=== PATIENT | female | born 1990 | race African-American/Black ===

== ENCOUNTER 2017-02-08 17:14 | Emergency (ER) | payer MEDICAID ==
[~2017-02-08] VITALS: Ht 165.1 cm; Wt 75.0 kg
[~2017-02-08 17:14] MED LIST: Z.0.NO CURRENT MEDS
[2017-02-08 17:15] VITALS: BP 127/70; PULSE 87; RESP 16; TEMP 98.2; O2SAT 99
[2017-02-08] MEDS ORDERED: ACET-703 PO (17:49)
--- NOTE | 2017-02-08 17:50 | PD ---
HPI Chief Complaint: Headache Time Seen by Provider: 17:34 Travel History International Travel<30 days: No Contact w/Intl Traveler<30days: No Traveled to known affect area: No History of Present Illness HPI This is a 27-year-old female who arrives complaining of headaches every night around 7:30 for a couple weeks. Initially they lasted just a few minutes however they've been lasting longer. Typically resting alone in leads to pain resolution. The pain is getting worse as well. Location is frontal head. Nausea without vomiting reported. Photophobia reported. No neck stiffness or fever reported. The patient states she is about 13 weeks and just wants to be certain everything is fine. She was advised by her dynamic balancer set up worker Arabella Randall to increase her water intake and states right now she is taking six 16 ounce bottles of water everyday. She has not taken an [id number] medication for the pain. She notes her sister has a history of migraines however the patient herself does not. No drugs or alcohol. No vaginal bleeding or genitourinary complaint. PFSH Past Medical History Medical History: Denies Significant Hx Asthma: Yes Diminished Hearing: No ?: LMP: 11/05/16 Menopausal: No : 1 Para: 0 Miscarriage: 0 : 0 Past Surgical History Surgical History: No Previous Surgery Social History Alcohol Use: No Tobacco Use: No Substance Use: No Allergies-Medications (Allergen,Severity, Reaction): Coded Allergies: No Known Allergies (Verified , 02/27/12) Reported Meds & Prescriptions Reported Meds & Active Scripts Active Reported No Current Meds (Miscellaneous Medication) Misc Review of Systems Except as stated in HPI: all other systems reviewed are Neg General / Constitutional: No: Fever Gastrointestinal: Positive: Nausea, No: Vomiting Physical Exam Narrative GENERAL: 27-year-old female well-nourished well-developed no acute distress SKIN: Focused skin assessment warm/dry. HEAD: Atraumatic. Normocephalic. EYES: Pupils equal round and reactive to light. The gaze is conjugate. Extraocular muscles are normal with range of motion. ENT: No nasal bleeding or discharge. Mucous membranes pink and moist. NECK: Trachea midline. No JVD. Supple no focal Midline tenderness. CARDIOVASCULAR: Regular rate and rhythm. No murmur appreciated. RESPIRATORY: No accessory muscle use. Clear to auscultation. Breath sounds equal bilaterally. GASTROINTESTINAL: Abdomen soft, non-tender, nondistended. Hepatic and splenic margins not palpable. MUSCULOSKELETAL: No obvious deformities. No clubbing. No cyanosis. No edema. NEUROLOGICAL: Awake and alert. No obvious cranial nerve deficits. Motor grossly within normal limits. Normal speech. PSYCHIATRIC: Appropriate mood and affect; insight and judgment normal. Data Data Last Documented VS Vital Signs Date Time Temp Pulse Resp B/P Pulse Ox O2 Delivery O2 Flow Rate FiO2 02/08/17 17:31 Room Air 02/08/17 17:15 98.2 87 16 127/70 99 Vital signs reviewed MDM Medical Decision Making Medical Screen Exam Complete: Yes Emergency Medical Condition: Yes Medical Record Reviewed: Yes Differential Diagnosis Thrombotic intracranial disease causing headache, migraine, complex migraine, preeclampsia, tension headache, cluster headache, intra-cranial hemorrhage Narrative Course Fortunately the patient's presentation is quite benign and she actually has no headache time of reevaluation. Her neurologic exam is normal. Her vital signs are also normal. At this time thrombotic disease causing headache and is considered very unlikely. Patient educated regarding Tylenol and was receptive. She has follow up as noted with Arabella Randall. Diagnosis Primary Impression: Headache Qualified Code: R51 - Nonintractable episodic headache, unspecified headache type Additional Impression: Qualified Code: Z3A.13 - 13 weeks gestation of Referrals: [facility] 1 week Additional Instructions: You have a choice when it comes to health care, and we are glad that you chose [facility]. Hopefully, we have met your expectations on today's visit. You are welcome to return to [facility] at any time, as we are committed to meeting the health care needs of our community. Med/Other Pt SpecificInfo: Prescription(s) given Scripts Acetaminophen (Tylenol Extra Strength)500 Mg Tab1,000 Mg PO Q8HR PRN (HEADACHE) 10 Days Ref 0 Prov:Kishore Mccray MD 02/08/17 Disposition: 01 DISCHARGE HOME Condition: Stable Kishore Mccray MD February 08, 2017 17:50
== END 2017-02-08 17:53 | disposition home or self-care (01) ==
LOC: NEPD 17:14
DX: O26.91 Pregnancy related conditions, unspecified, first trimester (principal); R51 Headache; Z3A.13 13 weeks gestation of pregnancy
CPT/HCPCS: 99283

== ENCOUNTER 2017-07-22 15:01 | Emergency (ER) | payer MEDICAID ==
[~2017-07-22 15:01] MED LIST changes: +ACET-703 PO
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
== END 2017-07-22 16:46 | disposition home or self-care (01) ==
LOC: HOBED 15:01
DX: Z04.3 Encounter for examination and observation following other accident (principal); Z3A.37 37 weeks gestation of pregnancy
CPT/HCPCS: 59025

== ENCOUNTER 2017-08-09 02:20 | Inpatient (IN) | payer MEDICAID ==
[~2017-08-09] VITALS: Ht 165.1 cm; Wt 91.0 kg
[2017-08-09] VITALS (82 sets, daily range): BP systolic 90–140; BP diastolic 47–89; PULSE 77–115; RESP 16–20; TEMP 98.5–99
[2017-08-09] MEDS ORDERED: LACTATED RINGER'S 1000 ML INJ 1,000 ML IV SCH (02:56)
[2017-08-09] MEDS ORDERED: LACTATED RINGER'S 1000 ML INJ 1,000 ML IV PRN (02:56)
[2017-08-09] MEDS ORDERED: fentaNYL 2MCG-BUPIV 0.125% INJ 100 ML ONE (02:57)
[2017-08-09] MEDS ORDERED: ePHEDrine/NS 25 MG/5 ML SYR ONE (02:57)
[2017-08-09] MEDS ORDERED: LIDOCAINE HCL 1% 50 ML VIAL INFIL PRN (03:00)
[2017-08-09] MEDS ORDERED: LIDOCAINE HCL 1% 50 ML VIAL I-DERMAL PRN (03:00)
[2017-08-09] MEDS ORDERED: OXYTOCIN 30 UNITS-500ML PREMIX 500 ML IV ONE (03:00)
[2017-08-09] MEDS ORDERED: ONDANSETRON HCL 4 MG/2 ML VIAL IV PUSH PRN (03:00)
[2017-08-09] MEDS ORDERED: MINERAL OIL 10 ML VIAL TOPICAL PRN (03:00)
[2017-08-09] MEDS ORDERED: OXYTOCIN 30 UNITS-500ML PREMIX 500 ML IV SCH ×2 (03:00→12:30)
[2017-08-09] MEDS ORDERED: CITRIC ACID-SODIUM CITRATE LIQ 30 ML UDC PO SCH (03:00)
[2017-08-09] MEDS ORDERED: SODIUM CHLORID 0.9% 500 ML INJ 500 ML IV PRN (03:00)
--- NOTE | 2017-08-09 03:04 | PD ---
HPI Chief Complaint ctx Date Seen: Aug 09, 2017 Time Seen: 02:58 Travel History International Travel<30 Days: No Contact w/Intl Traveler<30Days: No Known Affected Area: No History of Present Illness HPI Pt is a 27y/o @ 39.4wks. She has PNC with [facility]. She presents with c/o ctx since 11pm "too close together". She denies LOF, VB. +FM. Weeks Gestation: 39 Para: 0 : 1 Last Menstrual Period: Aug 09, 2017 History Past Medical History Narrative Medical asthma Obstetric History Obstetric History 1. current Past Surgical History Surgical History: No Previous Surgery Family History Family History: Negative Social History Alcohol Use: No Tobacco Use: No Substance Abuse: No Allergies-Medications (Allergen,Severity, Reaction): Coded Allergies: No Known Allergies (Verified , 02/27/12) Home Meds Active Scripts Acetaminophen (Tylenol Extra Strength) 500 Mg Tab, 1000 MG PO Q8HR Y for HEADACHE for 10 Days, TAB 0 Refills Prov:Kishore Mccray MD 02/08/17 Reported Medications Miscellaneous (No Current Meds) [facility] [place] Review of Systems Except as stated in HPI: all other systems reviewed are Neg Physical Exam Narrative GENERAL: Well-nourished, well-developed patient, uncomfortable and breathing heavily with ctx SKIN: Warm and dry. HEAD: Normocephalic and atraumatic. EYES: No scleral icterus. No injection or drainage. ABDOMEN/GI: Abdomen soft, non-tender,gravid EXTREMITIES: No cyanosis NEUROLOGICAL: Awake and alert. Motor and sensory grossly within normal limits. FHTs: 130s, no accels seen, no decels, moderate variability, non-reactive (pt moving with each ctx and tracing maternal HR) TOCO: ctx q2-3m CVX: 3-/BBOW Data Data Vital Signs Reviewed: Yes Orders Orders Ob (2e) Additional Admit Info (08/09/17 02:55) Vital Signs (Adult) .ON ADMISSION (08/09/17 02:56) ^ Labor Status (08/09/17 02:56) ^ Non Stress Test (08/09/17 02:56) Admit To Inpatient (08/09/17 ) Vital Signs (Adult) .Per protocol (08/09/17 02:56) Heart (08/09/17 02:56) Amnioinfusion (08/09/17 02:56) Lactated Ringer's 1000 Ml Inj (Lr 1000 M (08/09/17 02:56) Sodium Chlorid 0.9% 500 Ml Inj (Ns 500 M (08/09/17 03:00) Sodium Chlor 0.9% 1000 Ml Inj (Ns 1000 M (08/09/17 03:16) Lidocaine 1% Inj (50 Ml) (Xylocaine 1% I (08/09/17 03:00) Citric Acid-Sodium Citrate Liq (Bicitra (08/09/17 03:00) Ondansetron Inj (Zofran Inj) (08/09/17 03:00) Fentanyl Inj (Fentanyl Inj) (08/09/17 03:00) Fentanyl Inj (Fentanyl Inj) (08/09/17 03:00) Complete Blood Count With Diff (08/09/17 02:56) Abo/Rh Blood Type (08/09/17 02:56) Urinalysis - C+S If Indicated (08/09/17 02:56) Drug Screen, Random Urine (08/09/17 02:56) Resp Oxygen Non Rebreathe Mask (08/09/17 ) ^ Epidural / Intrathecal Infus (08/09/17 02:56) Oxytocin 30 Units-500ml Premix (Pitocin (08/09/17 03:00) Lidocaine 1% Inj (50 Ml) (Xylocaine 1% I (08/09/17 03:00) Light Mineral Oil (Muri-Lube Oil) (08/09/17 03:00) Inpatient Certification (08/09/17 ) Urinary Catheter Management .ONCE (08/09/17 02:56) Diet Liquid (08/09/17 Breakfast) Lactated Ringer's 1000 Ml Inj (Lr 1000 M (08/09/17 02:56) Response To Medication .Post New Med Administration, Reaction (08/09/17 02:57) ^ Discontinue Medication (08/09/17 02:57) Oxytocin Drip (2-2-30) (08/09/17 03:00) Fentanyl 2mcg-Bupiv 0.125% Inj (Fentanyl (08/09/17 02:57) Ephedrine/Ns 25 Mg/5 Ml Syr (Ephedrine/N (08/09/17 02:57) MDM Plan 27y/o @ 39.4wks in labor. -- admit to L&D -- CLD, carson, epidural PRN -- pitocin augmentation PRN -- cat 1 tracing -- GBS neg Dr. Concepcion (research and evaluation manager) notified of pt status and agrees with plan of care. Courtesy orders placed. She will assume care of the pt. Diagnosis Diagnosis: Primary Impression: 39 weeks gestation of Additional Impressions: Uterine contractions during Asthma Condition: Critical Keesha Crooks MD Aug 09, 2017 03:04
[2017-08-09 03:14] LABS: AUTOMATED NEUTROPHIL # 9.3 TH/MM3 (1.8-7.7); BASOPHIL % 0.1 % (0.0-2.0); EOSINOPHIL # 0.1 TH/MM3 (0-0.4); EOSINOPHIL % 0.6 % (0.0-4.0); HEMATOCRIT 35.9 % (35.0-46.0); LYMPH % 16.4 % (9.0-44.0); LYMPHOCYTE # 2.1 TH/MM3 (1.0-4.8); MEAN CORPUSCULAR HEMOGLOBIN 27.5 PG (27.0-34.0); MEAN CORPUSCULAR HGB CONC 33.6 % (32.0-36.0); MEAN PLATELET VOLUME 7.9 FL (7.0-11.0); MONO % 11.2 % (0.0-8.0); MONOCYTE # 1.5 TH/MM3 (0-0.9); NEUT % 71.7 % (16.0-70.0); PLATELET COUNT 171 TH/MM3 (150-450); RED BLOOD COUNT 4.37 MIL/MM3 (4.00-5.30); RED CELL DISTRIBUTION WIDTH 15.1 % (11.6-17.2)
[2017-08-09 03:15] LABS: AMORPHOUS SEDIMENT, URINE RARE; BACTERIA, URINE RARE /hpf; BILIRUBIN, URINE NEG (NEG); BLOOD, URINE NEG (NEG); GLUCOSE,URINE TRACE mg/dL (NEG); HYALINE CAST, URINE 1 /lpf (RARE); KETONE, URINE TRACE mg/dL (NEG); MUCUS URINE FEW /lpf (OCC); NITRITE,URINE NEG (NEG); PH, URINE 6.5 (5.0-8.5); SQUAMOUS EPITHELIAL CELL URINE 4 /hpf (0-5); URINE COLOR YELLOW (YELLW/STRAW); URINE LEUKOCYTE ESTERASE LARGE (NEG)
[2017-08-09] MEDS ORDERED: SODIUM CHLOR 0.9% 1000 ML INJ 1,000 ML IV PRN (03:16)
[2017-08-09] MEDS ORDERED: PREN29TA PO (03:31)
[2017-08-09] MEDS ORDERED: ePHEDrine/NS 25 MG/5 ML SYR IV PUSH PRN (04:15)
[2017-08-09] MEDS ORDERED: NO SYSTEM NARCOTICS PRN (04:15)
[2017-08-09] MEDS ORDERED: DO NOT ADMINISTER ANTICOAGULANTS PRN (04:15)
[2017-08-09] MEDS ORDERED: fentaNYL 2MCG-BUPIV 0.125% 100 ML EPIDURAL SCH (04:15)
--- NOTE | 2017-08-09 09:56 | PD.LABORPN ---
Subjective Subjective comfortable w epidural Objective Vital Signs Vital Signs Date Time Temp Pulse Resp B/P (MAP) Pulse Ox O2 Delivery O2 Flow Rate FiO2 08/09/17 08:30 17 08/09/17 08:25 110 08/09/17 08:25 107 08/09/17 08:20 94 08/09/17 08:20 93 08/09/17 08:15 95 08/09/17 08:15 100 08/09/17 08:15 94 101/63 (76) 08/09/17 08:10 95 08/09/17 08:10 97 08/09/17 08:05 100 08/09/17 08:05 101 08/09/17 08:00 92 08/09/17 08:00 92 08/09/17 07:45 18 08/09/17 07:40 81 08/09/17 07:40 82 08/09/17 07:35 79 08/09/17 07:35 79 08/09/17 07:30 81 08/09/17 07:30 85 08/09/17 07:30 79 97/61 (73) 08/09/17 07:05 79 08/09/17 07:05 79 08/09/17 07:00 84 08/09/17 07:00 85 101/62 (75) 08/09/17 07:00 83 08/09/17 06:51 18 08/09/17 06:45 93 08/09/17 06:45 96 105/58 (74) 08/09/17 06:45 86 08/09/17 06:30 84 08/09/17 06:30 83 91/47 (62) 08/09/17 06:30 83 08/09/17 06:20 89 08/09/17 06:20 88 08/09/17 06:15 86 101/51 (68) 08/09/17 06:15 85 08/09/17 06:15 82 08/09/17 06:05 85 08/09/17 06:05 86 08/09/17 06:00 89 08/09/17 06:00 89 103/52 (69) 08/09/17 06:00 79 08/09/17 05:55 85 08/09/17 05:55 84 08/09/17 05:50 88 08/09/17 05:50 90 08/09/17 05:45 77 08/09/17 05:45 80 08/09/17 05:45 79 99/53 (68) 08/09/17 05:30 78 08/09/17 05:30 81 101/62 (75) 08/09/17 05:30 81 08/09/17 05:29 18 08/09/17 05:25 85 08/09/17 05:25 83 08/09/17 05:20 77 08/09/17 05:20 80 08/09/17 05:15 82 100/59 (73) 08/09/17 05:15 84 08/09/17 05:15 84 08/09/17 05:00 86 91/50 (64) 08/09/17 05:00 82 08/09/17 05:00 85 08/09/17 04:55 81 08/09/17 04:55 83 08/09/17 04:50 84 08/09/17 04:50 86 08/09/17 04:48 18 08/09/17 04:48 81 92/47 (62) 08/09/17 04:45 86 08/09/17 04:45 85 08/09/17 04:45 87 94/47 (63) 08/09/17 04:30 88 08/09/17 04:30 89 08/09/17 04:30 91 96/55 (69) 08/09/17 04:20 78 08/09/17 04:20 80 08/09/17 04:19 78 08/09/17 04:19 95/49 (64) 08/09/17 04:17 90/47 (61) 08/09/17 04:17 92 08/09/17 04:16 88 08/09/17 04:15 81 08/09/17 04:15 81 08/09/17 04:00 84 08/09/17 04:00 96 08/09/17 04:00 97 114/63 (80) 08/09/17 04:00 18 08/09/17 03:55 18 08/09/17 03:50 92 08/09/17 03:50 89 113/62 (79) 08/09/17 03:50 90 08/09/17 03:45 81 117/64 (81) 08/09/17 03:45 88 08/09/17 03:45 77 08/09/17 03:40 100 08/09/17 03:40 102 136/79 (98) 08/09/17 03:35 99 08/09/17 03:35 103 134/73 (93) 08/09/17 03:30 106 08/09/17 03:30 99 08/09/17 03:30 99 139/89 (106) 08/09/17 03:25 107 08/09/17 03:25 106 140/87 (104) 08/09/17 03:25 100 08/09/17 03:22 20 08/09/17 03:22 97 130/75 (93) 08/09/17 03:20 108 08/09/17 03:15 109 08/09/17 02:50 103 Objective Pelvic Exam: Cervix6-7/90/-2 Presentationceph Membranes: arom, clear Uterine Contractions: 2-5min FHT's: Category:I Baseline:130 Reactive:y Variability: mod Decels: [-] Weeks Gestation: 39 Gest Age Assessed Date: Aug 09, 2017 Gest Age Assessed Time: 09:00 Pt started active labor?: Yes Active labor start date: Aug 09, 2017 Active labor start time: 06:00 Medical induction of labor?: No Artificial rupture of membrane: Yes Artificial ROM date: Aug 09, 2017 Artifical ROM time: 08:40 Assessment/Plan Problem List: (1) Labor and delivery, indication for care ICD Codes: O75.9 - Complication of labor and delivery, unspecified (2) 39 weeks gestation of ICD Codes: Z3A.39 - 39 weeks gestation of Status: Acute Assessment and Plan 27 yo G1 with iup at 39w4d in labor 1) labor- will start pitocin augmentation as she has irreg ctx pattern. Arom, min fluid. Still high station with narrow pelvis 2) gbs neg Jelly Butcher MD Aug 09, 2017 09:56
--- NOTE | 2017-08-09 12:23 | PD.OB.DELI ---
Weeks gestation: 39 Gest age assessed date: Aug 09, 2017 Gest age assessed time: 12:23 Pt started active labor?: Yes Active labor start date: Aug 09, 2017 Active labor start time: 06:00 Medical induction of labor?: No Artificial rupture of membrane: Yes Artificial ROM date: Aug 09, 2017 Artifical ROM time: 08:40 Anesthesia: Epidural Episiotomy: None Vaginal Delivery: Vacuum (prolonged deceleration w pushing. 3+ station. Adequate anesthesia, bladder emptied, adequate maternal pelvis. position OA. Written consent on chart and verbal consent given prior to vacuum application. Vacuum applied and median flexion point, gentle traction applied through 2 contractions, 2 pop offs and then maternal pushing efforts used only to deliver infant. ) Delivery date: Aug 09, 2017 Delivery time: 11:43 One Minute : 8 Five Minute : 9 Weight: pending Placenta: Spontaneous delivery Laceration: Vaginal laceration, 1 deg Repair: Chromic interrupted (one figure of 8) Estimated blood loss: 200ml Jelly Butcher MD Aug 09, 2017 12:23
[2017-08-09] MEDS ORDERED: ONDANSETRON ODT 4 MG TAB PO PRN (12:30)
[2017-08-09] MEDS ORDERED: ALUMINUM/MAGNESIUM/SIMETH 30 ML CUP PO PRN (12:30)
[2017-08-09] MEDS ORDERED: ZOLPIDEM TARTRATE 5 MG TAB PO PRN (12:30)
[2017-08-09] MEDS ORDERED: BENZOCAINE 20% TOPICAL SPRAY 60 ML CAN TOPICAL PRN (12:30)
[2017-08-09] MEDS ORDERED: WITCH HAZEL 50%/GLYCERIN 12.5% 40 PAD JAR TOPICAL PRN (12:30)
[2017-08-09] MEDS ORDERED: DOCUSATE SODIUM 50 MG/SENNA 8.6 MG TAB PO PRN (12:30)
[2017-08-09] MEDS ORDERED: SODIUM CHLORIDE 0.9% FLUSH 10 ML FLUSH IV FLUSH PRN (12:30)
[2017-08-09] MEDS: IBUPROFEN 600 MG TAB PO PRN ×2 (13:30→19:21)
[2017-08-09] MEDS ORDERED: DIPHTH/TETANUS/ACEL PERTUSSIS (BOOSTER) 0.5 ML VIAL/PFS IM ONE (16:00)
[2017-08-09] MEDS ORDERED: MEASLES, MUMPS, RUBELLA VACCINE 0.5 ML VIAL SQ ONE (16:00)
[2017-08-09] MEDS: ACETAMINOPHEN 325 MG TAB PO PRN (19:21)
[2017-08-09] MEDS ORDERED: SODIUM CHLORIDE 0.9% FLUSH 10 ML FLUSH IV FLUSH SCH (21:00)
[2017-08-10] MEDS: ACETAMINOPHEN 325 MG TAB PO PRN ×3 (00:29→10:20)
[2017-08-10] MEDS: IBUPROFEN 600 MG TAB PO PRN (05:31)
[2017-08-10 07:45] VITALS: BP 133/75; PULSE 88; RESP 18; TEMP 98
--- NOTE | 2017-08-10 11:02 | HHI.OB ---
Subjective Post Day: 1 Remarks doing well, wants to go home Objective Vitals/I&O Vital Signs Date Time Temp Pulse Resp B/P (MAP) Pulse Ox O2 Delivery O2 Flow Rate FiO2 08/10/17 07:45 98.0 88 18 08/10/17 07:45 133/75 (94) 08/09/17 19:20 98.5 08/09/17 19:20 91 17 119/74 (89) 08/09/17 13:45 98.9 90 16 119/70 (86) 08/09/17 13:00 98.7 17 08/09/17 12:32 98 121/62 (81) 08/09/17 12:30 18 08/09/17 12:15 98 122/62 (82) 08/09/17 12:10 17 08/09/17 12:09 104 121/60 (80) 08/09/17 11:30 18 08/09/17 11:25 94 08/09/17 11:25 91 08/09/17 11:20 86 08/09/17 11:20 84 08/09/17 11:15 89 106/66 (79) 08/09/17 11:15 87 08/09/17 11:15 81 Objective Remarks GENERAL: Well-nourished, well-developed patient. CARDIOVASCULAR: Regular rate and rhythm without murmurs, gallops, or rubs. RESPIRATORY: Breath sounds equal bilaterally. No accessory muscle use. ABDOMEN/GI: Abdomen soft, non-tender. Fundus: Firm, non-tender at umbilicus. GENITOURINARY: Light to moderate bleeding. EXTREMITIES: No cyanosis or edema, non-tender, without signs of DVT. Medications and IVs Current Medications Medications (Trade) Dose Ordered Sig/Merly Route Start Time Stop Time Status Last Admin (NS Flush) 2 ml BID IV FLUSH 08/09/17 21:00 (NS Flush) 2 ml UNSCH PRN IV FLUSH 08/09/17 12:30 (Tylenol) 650 mg Q4H PRN PO 08/09/17 12:30 08/10/17 10:20 (Motrin) 600 mg Q6H PRN PO 08/09/17 12:30 08/10/17 05:31 (Americaine 20% Top Spr) 1 spray Q4H PRN TOPICAL 08/09/17 12:30 (Tucks Pads) 1 applic QID PRN TOPICAL 08/09/17 12:30 08/09/17 13:29 (Lashay-Colace) 2 tab Q12H PRN PO 08/09/17 12:30 08/10/17 10:20 (Ambien) 5 mg HS PRN PO 08/09/17 12:30 (Mag-Al Plus Susp Liq) 15 ml Q8H PRN PO 08/09/17 12:30 (Zofran Odt) 4 mg Q6H PRN PO 08/09/17 12:30 Assessment/Plan Problem List: (1) Status post vacuum-assisted vaginal delivery ICD Codes: Z87.42 - Personal history of other diseases of the female genital tract Assessment and Plan VAVD ppd1 cont routine care dispo home today if ready Jelly Butcher MD Aug 10, 2017 11:02
[2017-08-10] MEDS ORDERED: IBUP-232 PO (11:03)
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
== END 2017-08-10 15:18 | disposition home or self-care (01) | DRG 775 ==
LOC: HOBED 02:20 → H2EA 02:55 → H1EA 13:35
PROVIDERS: ADMIT Obstetrics & Gynecology; ATTEND Obstetrics & Gynecology
PROC: 10D07Z6 Extraction of Products of Conception, Vacuum, Via Natural or Artificial Opening (ICD-10-PCS; principal; 2017-08-09)
PROC: 10907ZC Drainage of Amniotic Fluid, Therapeutic from Products of Conception, Via Natural or Artificial Opening (ICD-10-PCS; 2017-08-09)
PROC: 3E0R3BZ Introduction of Anesthetic Agent into Spinal Canal, Percutaneous Approach (ICD-10-PCS; 2017-08-09)
PROC: 00HU33Z Insertion of Infusion Device into Spinal Canal, Percutaneous Approach (ICD-10-PCS; 2017-08-09)
DX: O76 Abnormality in fetal heart rate and rhythm complicating labor and delivery (principal); O71.4 Obstetric high vaginal laceration alone; Z37.0 Single live birth; O99.52 Diseases of the respiratory system complicating childbirth; J45.909 Unspecified asthma, uncomplicated; Z3A.39 39 weeks gestation of pregnancy
CPT/HCPCS: 80307; 81001; 85025; 85461; 86850; 86900; 86901; 87086; 90384; J2590; J2790; J7120